=== PATIENT | female | born 1945 | race Caucasian/White ===

== ENCOUNTER 2023-10-09 08:09 | Day surgery (SDC) | payer OTHER ==
[2023-10-05 11:47] VITALS: BMI 38.6
[2023-10-09 09:45] VITALS: TEMP 97.8
[2023-10-09 10:09] VITALS: BP 130/64; PULSE 72; RESP 20
== END 2023-10-09 10:09 | disposition home or self-care (01) ==
LOC: FASU-ENDO 08:09
PROVIDERS: ATTEND Internal Medicine Gastroenterology
PROC: 0DB68ZX Excision of Stomach, Via Natural or Artificial Opening Endoscopic, Diagnostic (ICD-10-PCS; 2023-10-09)
PROC: 0DB48ZX Excision of Esophagogastric Junction, Via Natural or Artificial Opening Endoscopic, Diagnostic (ICD-10-PCS; 2023-10-09)
PROC: 0DB98ZX Excision of Duodenum, Via Natural or Artificial Opening Endoscopic, Diagnostic (ICD-10-PCS; principal; 2023-10-09 09:26)
DX: K29.50 Unspecified chronic gastritis without bleeding (principal); K21.00 Gastro-esophageal reflux disease with esophagitis, without bleeding; R10.13 Epigastric pain
CPT/HCPCS: 88305-TC; 88342-TC

== ENCOUNTER 2024-01-01 06:27 | Day surgery (SDC) | payer OTHER ==
[2023-12-25 10:13] VITALS: BMI 38.6
[2024-01-01] MEDS ORDERED: LIDOCAINE HCL/PF 2% SDV 5ML VIAL ONE (07:14)
[2024-01-01] MEDS ORDERED: PROPOFOL 200 ML ONE (07:15)
[2024-01-01 09:03] VITALS: RESP 17
[2024-01-01 09:11] VITALS: BP 100/52; PULSE 62; TEMP 97
== END 2024-01-01 08:55 | disposition home or self-care (01) ==
LOC: FASU-ENDO 06:27
PROVIDERS: ATTEND Internal Medicine Gastroenterology
PROC: 0DBL8ZX Excision of Transverse Colon, Via Natural or Artificial Opening Endoscopic, Diagnostic (ICD-10-PCS; 2024-01-01)
PROC: 0DBM8ZX Excision of Descending Colon, Via Natural or Artificial Opening Endoscopic, Diagnostic (ICD-10-PCS; 2024-01-01)
PROC: 0DBK8ZX Excision of Ascending Colon, Via Natural or Artificial Opening Endoscopic, Diagnostic (ICD-10-PCS; principal; 2024-01-01 07:54)
DX: R19.7 Diarrhea, unspecified (principal); K57.30 Diverticulosis of large intestine without perforation or abscess without bleeding; K64.1 Second degree hemorrhoids
CPT/HCPCS: 88305-TC